=== PATIENT | female | born 1975 | race Two or more races ===

== ENCOUNTER 2024-04-08 09:07 | Inpatient (IN) | payer MEDICAID, OTHER ==
[~2024-04-08] VITALS: Ht 157.5 cm; Wt 54.0 kg
[2024-04-08 09:52] LABS: BASOPHILS % (AUTO) 0.1 % (0.0-2.0); EOSINOPHILS # (AUTO) 0.1 K/uL (0.0-0.7); EOSINOPHILS % (AUTO) 1.7 % (0.0-6.0); HEMATOCRIT 29 % (33-45); HEMOGLOBIN 9.3 g/dL (11.5-14.8); LYMPHOCYTES # (AUTO) 0.8 K/uL (0.8-4.8); LYMPHOCYTES % (AUTO) 8.9 % (20.0-44.0); MEAN CORPUSCULAR HEMOGLOBIN 31 PG (26.0-33.0); MEAN CORPUSCULAR HGB CONC 32 g/dl (31.0-36.0); MEAN CORPUSCULAR VOLUME 96 fL (82-100); MONOCYTES % (AUTO) 11.1 % (2.0-12.0); NEUTROPHILS # (AUTO) 6.9 K/uL (1.8-8.9); NEUTROPHILS % (AUTO) 78.2 % (43.0-81.0); PLATELET COUNT (AUTO) 202 K/uL (150-450); RED BLOOD CELL COUNT(AUTO) 3.01 MIL/uL (4.0-5.2); WHITE BLOOD COUNT (AUTO) 8.8 K/uL (4.3-11.0)
[2024-04-08 10:05] LABS: CALCIUM, SERUM 9.1 mg/dL (8.5-10.1); CARBON DIOXIDE 35 mmol/L (21-32); CHLORIDE 98 mmol/L (98-107); CREATININE 2.3 mg/dL (0.6-1.3); GLUCOSE 232 mg/dL (74-106); POTASSIUM 3.5 mmol/L (3.5-5.1); SODIUM SERUM 135 mmol/L (136-145); UREA NITROGEN, BLOOD 41 mg/dL (7-18)
[2024-04-08 10:07] LABS: INR 1.03 (0.91-1.10); PROTHROMBIN TIME 10.9 SECS (9.2-11.1)
[2024-04-08 10:10] LABS: ALANINE AMINOTRANSFERASE 26 U/L (12-78); ALBUMIN 2.2 g/dL (3.4-5.0); ALKALINE PHOSPHATASE 606 U/L (46-116); ASPARTATE AMINOTRANSFERASE 18 U/L (15-37); BILIRUBIN,DIRECT 0.2 mg/dL (0.0-0.2); BILIRUBIN,TOTAL 0.3 mg/dL (0.2-1.0); TOTAL PROTEIN, SERUM 7.9 g/dL (6.4-8.2)
[2024-04-08 10:12] LABS: LACTIC ACID 0.6 mmol/L (0.4-2.0)
[2024-04-08 10:16] LABS: MAGNESIUM 2.6 mg/dL (1.8-2.4); PHOSPHORUS 3.6 mg/dL (2.5-4.9)
[2024-04-08 10:35] LABS: NT-PRO BNP > 25000 pg/mL (0-125)
[2024-04-08] MEDS ORDERED: DOCU100C36 GT (12:27)
[2024-04-08] MEDS ORDERED: BISA10SU11 RC (12:27)
[2024-04-08] MEDS ORDERED: CLON0.1T GT (12:27)
[2024-04-08] MEDS ORDERED: SEVE800T7 GT (12:27)
[2024-04-08] MEDS ORDERED: GLUC1KIT IM (12:27)
[2024-04-08] MEDS ORDERED: SERT50TA GT (12:27)
[2024-04-08] MEDS ORDERED: NUTR100037 GT (12:27)
[2024-04-08] MEDS ORDERED: MIDO10TA GT (12:27)
[2024-04-08] MEDS ORDERED: INSU100I4 SQ (12:27)
[2024-04-08] MEDS ORDERED: POLY17PO4 GT (12:27)
[2024-04-08] MEDS ORDERED: EPOE40007 SQ (12:27)
[2024-04-08] MEDS ORDERED: HYDR-4303 GT (12:27)
[2024-04-08] MEDS ORDERED: SENN-261 GT (12:27)
[2024-04-08] MEDS ORDERED: CLON0.252 GT (12:27)
[2024-04-08] MEDS ORDERED: MAGN400O6 GT (12:27)
[2024-04-08] MEDS ORDERED: DILT60TA3 GT (12:27)
[2024-04-08] MEDS ORDERED: LIDO700A30 TP (12:27)
[2024-04-08] MEDS ORDERED: SIME80TA15 GT (12:27)
[2024-04-08] MEDS ORDERED: ACET160L44 GT (12:27)
[2024-04-08] MEDS ORDERED: MAGNESIUM HYDROXIDE 30 ML UDC PO PRN (15:30)
[2024-04-08] MEDS ORDERED: ZOLPIDEM TARTRATE 5 MG TABLET PO PRN (15:30)
[2024-04-08] MEDS ORDERED: MAG HYDROX/AL HYDROX/SIMETH 30 ML UDC PO PRN (15:30)
[2024-04-08] MEDS ORDERED: Z GUARD REMEDY 4 OZ OINT TP PRN (15:30)
[2024-04-08] MEDS: ENOXAPARIN SODIUM 30 MG/0.3 ML DISP.SYRIN SQ SCH (18:31)
[2024-04-08] MEDS: CEFEPIME 2 GM in IV D5W 100 ML IV SCH (18:37)
[2024-04-08] MEDS: VANCOMYCIN HCL 1.25 GM in IV D5W 250 ML IV ONE (19:53)
[2024-04-08 20:00] VITALS: BP 179/82; TEMP 100.9; O2SAT 100
[2024-04-08] MEDS: ACETAMINOPHEN 325 MG TABLET PO PRN (21:53)
[2024-04-08] MEDS: hydrALAZINE HCL IV 20 MG VIAL IV PRN (21:54)
[2024-04-08 22:35] VITALS: BP 160/74; TEMP 99; O2SAT 99
[2024-04-08] MEDS: IV 1/2NS 1000 ML 1,000 ML IV PRN (22:48)
[2024-04-08] MEDS ORDERED: [UNRECOGNIZED DRUG - OTHER] SL PRN (23:00)
[2024-04-08] MEDS ORDERED: RAPDIS SL PRN (23:00)
[2024-04-08] MEDS ORDERED: MIDODRINE HCL (5MG) 5 MG TABLET GT PRN (23:00)
[2024-04-08] MEDS ORDERED: SIMETHICONE 80 MG TAB.CHEW GT PRN (23:00)
[2024-04-08] MEDS ORDERED: NEPRO 1,000 ML BOTTLE GT PRN (23:00)
[2024-04-08] MEDS ORDERED: DEXTROSE 50%-WATER 50 ML DISP.SYRIN IV PRN (23:00)
[2024-04-08 23:55] VITALS: BP 157/74; TEMP 100.6; O2SAT 98
[2024-04-09] MEDS: BLOOD SUGAR DIAGNOSTIC 1 EACH STRIP IN SCH (00:40)
[2024-04-09 04:02] VITALS: BP 174/81; TEMP 98.4; O2SAT 100
[2024-04-09 06:54] LABS: BASOPHILS % (AUTO) 0.1 % (0.0-2.0); EOSINOPHILS # (AUTO) 0.1 K/uL (0.0-0.7); EOSINOPHILS % (AUTO) 0.9 % (0.0-6.0); HEMATOCRIT 25 % (33-45); HEMOGLOBIN 8.4 g/dL (11.5-14.8); LYMPHOCYTES # (AUTO) 0.8 K/uL (0.8-4.8); LYMPHOCYTES % (AUTO) 9.6 % (20.0-44.0); MEAN CORPUSCULAR HEMOGLOBIN 32 PG (26.0-33.0); MEAN CORPUSCULAR HGB CONC 34 g/dl (31.0-36.0); MEAN CORPUSCULAR VOLUME 94 fL (82-100); MONOCYTES # (AUTO) 1.1 K/uL (0.1-1.30); MONOCYTES % (AUTO) 12.4 % (2.0-12.0); NEUTROPHILS # (AUTO) 6.6 K/uL (1.8-8.9); PLATELET COUNT (AUTO) 165 K/uL (150-450); RED BLOOD CELL COUNT(AUTO) 2.64 MIL/uL (4.0-5.2); RED CELL DISTRIBUTION WIDTH 20.1 % (11.5-15.0); WHITE BLOOD COUNT (AUTO) 8.5 K/uL (4.3-11.0)
[2024-04-09 07:08] LABS: CALCIUM, SERUM 8.8 mg/dL (8.5-10.1); CREATININE 2.6 mg/dL (0.6-1.3); MAGNESIUM 2.6 mg/dL (1.8-2.4); PHOSPHORUS 3.1 mg/dL (2.5-4.9); POTASSIUM 3.5 mmol/L (3.5-5.1)
[2024-04-09] MEDS: DILTIAZEM HCL 30 MG TABLET GT SCH (08:13)
[2024-04-09] MEDS: SERTRALINE HCL 50 MG TABLET GT SCH (08:13)
[2024-04-09] MEDS: PANTOPRAZOLE 40 MG TABLET.DR PO SCH (08:14)
[2024-04-09] MEDS: SEVELAMER CARBONATE 800 MG TABLET PO SCH (08:14)
[2024-04-09] MEDS: NEPRO 1,000 ML BOTTLE GT SCH (11:59)
[2024-04-09] MEDS: EPOETIN ALFA-EPBX 4,000 UNIT/ML VIAL SQ SCH (15:08)
[2024-04-09] MEDS: ONDANSETRON HCL/PF 4 MG/2 ML VIAL IVP PRN (17:21)
[2024-04-09] MEDS ORDERED: VANCOMYCIN 750 MG in IV D5W 250 ML IV SCH (18:00)
[2024-04-09 20:00] VITALS: BP 159/80; TEMP 99; O2SAT 98
[2024-04-09] MEDS ORDERED: ALTEPLASE CATHFLO 2 MG/VIAL ONE (23:02)
[2024-04-09] MEDS: ALTEPLASE CATHFLO 2 MG/VIAL IV ONE (23:04)
[2024-04-10] VITALS: BP 157/78; TEMP 97.5; O2SAT 97
[2024-04-10 04:00] VITALS: BP 157/74; TEMP 98.3; O2SAT 96
[2024-04-10] MEDS: VANCOMYCIN 1 GM in IV D5W 250ml IV SCH (06:08)
[2024-04-10] MEDS: INSULIN REGULAR, HUMAN 100 UNIT/ML 3 ML VIAL SQ PRN (06:10)
[2024-04-10 06:45] LABS: CALCIUM, SERUM 9.3 mg/dL (8.5-10.1); CREATININE 1.8 mg/dL (0.6-1.3); POTASSIUM 3.7 mmol/L (3.5-5.1)
[2024-04-10 08:00] VITALS: BP 175/79; TEMP 99; O2SAT 100
[2024-04-10 12:00] VITALS: BP 157/76; TEMP 98.8; O2SAT 99
[2024-04-10 15:18] LABS: PREGNANCY TEST URINE QUAL NEGATIVE (NEGATIVE)
[2024-04-10 15:59] LABS: WBC, BODY FLUID 127 /cu. mm. (0-200)
[2024-04-10 16:00] VITALS: BP 169/81; TEMP 98.8; O2SAT 100
[2024-04-10 16:10] LABS: PROTEIN, BODY FLUID 4.1 G/DL
[2024-04-10 17:53] LABS: APPEARANCE,SPUN,BODY FLUID CLEAR (CLEAR)
[2024-04-10 17:54] LABS: TOTAL VOLUME,BODY FLUID 2055 mL
[2024-04-10 19:00] LABS: MACROPHAGES, BODY FLUID 92; MONOCYTES,BODY FLUID 1 %; POLYNUCLEAR, BODY FLUID 2 % (0-25)
[2024-04-10 20:00] VITALS: BP 156/82; TEMP 99.7; O2SAT 100
[2024-04-11] VITALS: BP 151/80; TEMP 98.8; O2SAT 99
[2024-04-11 04:00] VITALS: BP 166/74; TEMP 99.1; O2SAT 99
[2024-04-11] MEDS: VANCOMYCIN 1 GM in IV D5W 250ml IV SCH (06:00)
[2024-04-11 07:32] LABS: BASOPHILS % (AUTO) 0.2 % (0.0-2.0); EOSINOPHILS # (AUTO) 0.2 K/uL (0.0-0.7); EOSINOPHILS % (AUTO) 2.3 % (0.0-6.0); HEMATOCRIT 28 % (33-45); HEMOGLOBIN 9.2 g/dL (11.5-14.8); LYMPHOCYTES # (AUTO) 0.6 K/uL (0.8-4.8); LYMPHOCYTES % (AUTO) 6.7 % (20.0-44.0); MEAN CORPUSCULAR HEMOGLOBIN 31 PG (26.0-33.0); MEAN CORPUSCULAR HGB CONC 33 g/dl (31.0-36.0); MEAN CORPUSCULAR VOLUME 96 fL (82-100); MONOCYTES # (AUTO) 0.6 K/uL (0.1-1.30); MONOCYTES % (AUTO) 6.8 % (2.0-12.0); PLATELET COUNT (AUTO) 142 K/uL (150-450); RED BLOOD CELL COUNT(AUTO) 2.96 MIL/uL (4.0-5.2); RED CELL DISTRIBUTION WIDTH 19.8 % (11.5-15.0); WHITE BLOOD COUNT (AUTO) 9.5 K/uL (4.3-11.0)
[2024-04-11 07:33] LABS: CALCIUM, SERUM 8.5 mg/dL (8.5-10.1); CREATININE 2.2 mg/dL (0.6-1.3); POTASSIUM 3.5 mmol/L (3.5-5.1)
[2024-04-11 08:00] VITALS: BP 165/104; TEMP 99; O2SAT 99
[2024-04-11] MEDS: HYDROCODONE/APAP 5/325MG TABLET PO PRN (11:19)
[2024-04-11 12:00] VITALS: BP 144/70; TEMP 98.6; O2SAT 99
[2024-04-11 16:01] VITALS: BP 158/68; TEMP 98.8; O2SAT 100
[2024-04-11 20:00] VITALS: BP 176/84; TEMP 97.9; O2SAT 99
[2024-04-12] VITALS: BP 168/74; TEMP 98.4; O2SAT 100
[2024-04-12 04:00] VITALS: BP 152/70; TEMP 98.1; O2SAT 100
[2024-04-12 08:00] VITALS: BP 162/74; TEMP 99; O2SAT 99
[2024-04-12 08:17] LABS: CALCIUM, SERUM 8.3 mg/dL (8.5-10.1); CREATININE 1.7 mg/dL (0.6-1.3); POTASSIUM 3.6 mmol/L (3.5-5.1)
[2024-04-12 08:36] LABS: BASOPHILS % (AUTO) 0.1 % (0.0-2.0); EOSINOPHILS # (AUTO) 0.3 K/uL (0.0-0.7); EOSINOPHILS % (AUTO) 2.7 % (0.0-6.0); HEMATOCRIT 30 % (33-45); HEMOGLOBIN 9.6 g/dL (11.5-14.8); LYMPHOCYTES # (AUTO) 0.6 K/uL (0.8-4.8); LYMPHOCYTES % (AUTO) 5.7 % (20.0-44.0); MEAN CORPUSCULAR HEMOGLOBIN 30 PG (26.0-33.0); MEAN CORPUSCULAR HGB CONC 32 g/dl (31.0-36.0); MEAN CORPUSCULAR VOLUME 95 fL (82-100); MONOCYTES # (AUTO) 0.9 K/uL (0.1-1.30); MONOCYTES % (AUTO) 8.6 % (2.0-12.0); NEUTROPHILS % (AUTO) 82.9 % (43.0-81.0); PLATELET COUNT (AUTO) 134 K/uL (150-450); RED BLOOD CELL COUNT(AUTO) 3.15 MIL/uL (4.0-5.2); RED CELL DISTRIBUTION WIDTH 19.8 % (11.5-15.0); WHITE BLOOD COUNT (AUTO) 10.8 K/uL (4.3-11.0)
[2024-04-12] MEDS ORDERED: CEFP200T14 PO (11:21)
[2024-04-12 12:00] VITALS: BP 158/69; TEMP 97.9; O2SAT 99
[2024-04-12 16:00] VITALS: BP 167/73; TEMP 99; O2SAT 100
[2024-04-12 20:00] VITALS: BP 160/82; TEMP 97.9; O2SAT 99
[2024-04-13] VITALS (7 sets, daily range): BP systolic 128–169; BP diastolic 69–84; TEMP 97.7–99; O2SAT 98–100
[2024-04-13 07:18] LABS: BASOPHILS % (AUTO) 0.2 % (0.0-2.0); EOSINOPHILS # (AUTO) 0.2 K/uL (0.0-0.7); EOSINOPHILS % (AUTO) 1.9 % (0.0-6.0); HEMATOCRIT 30 % (33-45); HEMOGLOBIN 9.7 g/dL (11.5-14.8); LYMPHOCYTES # (AUTO) 0.6 K/uL (0.8-4.8); LYMPHOCYTES % (AUTO) 5.8 % (20.0-44.0); MEAN CORPUSCULAR HEMOGLOBIN 30 PG (26.0-33.0); MEAN CORPUSCULAR HGB CONC 32 g/dl (31.0-36.0); MEAN CORPUSCULAR VOLUME 94 fL (82-100); MONOCYTES # (AUTO) 0.9 K/uL (0.1-1.30); MONOCYTES % (AUTO) 8.9 % (2.0-12.0); NEUTROPHILS # (AUTO) 8.9 K/uL (1.8-8.9); NEUTROPHILS % (AUTO) 83.2 % (43.0-81.0); PLATELET COUNT (AUTO) 152 K/uL (150-450); RED BLOOD CELL COUNT(AUTO) 3.21 MIL/uL (4.0-5.2); WHITE BLOOD COUNT (AUTO) 10.7 K/uL (4.3-11.0)
[2024-04-13 07:39] LABS: CALCIUM, SERUM 8.7 mg/dL (8.5-10.1); CREATININE 2.1 mg/dL (0.6-1.3); POTASSIUM 3.5 mmol/L (3.5-5.1)
[2024-04-13] MEDS ORDERED: CEFP200T14 NG (12:36)
[2024-04-13] MEDS: VANCOMYCIN POST DIALYSIS 500MG IV PRN (18:21)
[2024-04-14 07:08] LABS: HEPATITIS B SURFACE AB Non Reactive (.)
== END 2024-04-13 21:47 | DRG 130 ==
LOC: ER 09:13 → TELE1 16:32
PROC: 5A1955Z Respiratory Ventilation, Greater than 96 Consecutive Hours (ICD-10-PCS; principal; 2024-04-08)
PROC: 0W993ZX Drainage of Right Pleural Cavity, Percutaneous Approach, Diagnostic (ICD-10-PCS; 2024-04-08)
PROC: 5A1D70Z Performance of Urinary Filtration, Intermittent, Less than 6 Hours Per Day (ICD-10-PCS; 2024-04-09)
DX: J95.851 Ventilator associated pneumonia (principal); G93.49 Other encephalopathy; J15.69 Pneumonia due to other Gram-negative bacteria; J96.21 Acute and chronic respiratory failure with hypoxia; I12.0 Hypertensive chronic kidney disease with stage 5 chronic kidney disease or end stage renal disease; J15.9 Unspecified bacterial pneumonia; R78.81 Bacteremia; J90 Pleural effusion, not elsewhere classified; E87.1 Hypo-osmolality and hyponatremia; N18.6 End stage renal disease; Z93.0 Tracheostomy status; E11.22 Type 2 diabetes mellitus with diabetic chronic kidney disease; D64.9 Anemia, unspecified; Z99.11 Dependence on respirator [ventilator] status; Z20.822 Contact with and (suspected) exposure to COVID-19; Z86.73 Personal history of transient ischemic attack (TIA), and cerebral infarction without residual deficits; Z99.2 Dependence on renal dialysis; Z93.1 Gastrostomy status; Z79.899 Other long term (current) drug therapy; Y95 Nosocomial condition; Y84.8 Other medical procedures as the cause of abnormal reaction of the patient, or of later complication, without mention of misadventure at the time of the procedure; Z79.4 Long term (current) use of insulin; M89.8X9 Other specified disorders of bone, unspecified site; E78.5 Hyperlipidemia, unspecified; R13.10 Dysphagia, unspecified; I16.0 Hypertensive urgency; E87.70 Fluid overload, unspecified; B96.89 Other specified bacterial agents as the cause of diseases classified elsewhere
CPT/HCPCS: 31720; 36415; 71045-TC; 80048-TC; 80076-TC; 80202-TC; 82962-TC; 83605-TC; 83735-TC; 83880; 84100-TC; 84484-TC; 84703-TC; 85025-TC; 85730-TC; 86706; 87040-TC; 87081-TC; 87102-TC; 87340; 89051-TC; 90935-TC; 94003-TC; 94760-TC; 94762-TC; 94799-TC; A4223; G0378; J0360; J0692; J0885; J1650; J1815; J2405; J2997; J3370; J3371; J3490; J7030; J7050; J7060